=== PATIENT | male | born 1970 | race Caucasian/White ===

== ENCOUNTER 2019-04-07 20:45 | Inpatient (IN) | payer MEDICAID ==
[~2019-04-07] VITALS: Ht 170.2 cm; Wt 93.4 kg
[2019-04-07 20:51] VITALS: BP_SYST 145
--- NOTE | 2019-04-07 20:52 | NUR ---
Patient triaged and placed in waiting room. VSS and patient appears in no acute distress at this time. Accompanied by family member, awaiting available bed, and MD notified of need for MSE.
--- NOTE | 2019-04-07 23:17 | NUR ---
Patient to ER bed H1 to gown for evaluation. Side rails up.
--- NOTE | 2019-04-07 23:22 | NUR ---
Pt AAOx4, panamanian speaking only, presents to ED c/o 01/27 pain to foot radiating up L leg s/p hitting foot on wooden palate at work x 1 week ago. Redness and swelling noted. No other injuries/complaints per pt/noted. Will continue to monitor.
--- NOTE | 2019-04-07 23:52 | NUR ---
ER Dr. Childs at bedside examining patient.
[2019-04-07] MEDS ORDERED: NACL 0.9% 1,000 ML IV ONE (23:55)
[2019-04-08] MEDS ORDERED: VANCOMYCIN HCL 1,000 MG in NS 250 ML IV ONE ×2
[2019-04-08] MEDS ORDERED: cefTRIAXone 1 GM in D5W 50 ML IV ONE ×2
[2019-04-08] MEDS ORDERED: DIPH-TET-PERTUS Vaccine 0.5 ML VIAL (ADACEL) I.M. ONE
[2019-04-08] MEDS ORDERED: MORPHINE 2 MG/ML INJ. SYRINGE IM ONE
[2019-04-08] MEDS ORDERED: ONDANSETRON HCL 4 MG/2 ML VIAL IVP ONE
[2019-04-08] MEDS ORDERED: cefTRIAXone 1 GM VIAL ONE (00:20)
[2019-04-08] MEDS ORDERED: VANCOMYCIN HCL 1000 MG/VIAL IV ONE (00:21)
[2019-04-08 01:24] LABS: BASOPHILS # (AUTO) 0.1 K/uL (0.0-0.2); BASOPHILS % (AUTO) 0.4 % (0.0-2.0); EOSINOPHILS # (AUTO) 0.1 K/uL (0.0-0.4); EOSINOPHILS % (AUTO) 0.8 % (0.0-4.0); HEMATOCRIT 32.7 % (36-54); HEMOGLOBIN 11.1 g/dL (14.0-18.0); LYMPHOCYTES # (AUTO) 2.7 K/uL (1.0-5.5); LYMPHOCYTES % (AUTO) 17.5 % (20.5-51.5); MEAN CORPUSCULAR HEMOGLOBIN 29 pg (27-31); MEAN CORPUSCULAR HGB CONC 34 % (32-36); MEAN CORPUSCULAR VOLUME 85 fL (79.0-98.0); MONOCYTES # (AUTO) 1.4 K/uL (0.0-1.0); MONOCYTES % (AUTO) 8.8 % (1.7-9.3); NEUTROPHILS # (AUTO) 11.2 K/uL (1.8-7.7); NEUTROPHILS % (AUTO) 72.5 % (40.0-70.0); PLATELET COUNT (AUTO) 329 K/uL (130-430); RED BLOOD CELL COUNT(AUTO) 3.87 MIL/uL (4.2-6.2); RED CELL DISTRIBUTION WIDTH 13.9 % (9.0-15.0); WHITE BLOOD COUNT (AUTO) 15.4 K/uL (4.8-10.8)
[2019-04-08 01:39] LABS: PROTHROMBIN TIME 10.2 SECS (9.5-12.5)
[2019-04-08 01:40] LABS: ALBUMIN 3.9 g/dL (3.4-4.8); CALCIUM 8.9 mg/dL (8.4-11.0); CREATININE 1.6 mg/dL (0.55-1.30); TOTAL BILIRUBIN 0.9 mg/dL (0.0-1.0)
[2019-04-08] MEDS ORDERED: METF-510 PO (02:43)
[2019-04-08] MEDS ORDERED: ASPI-1155 PO (02:43)
[2019-04-08] MEDS ORDERED: NEU300 PO (02:43)
[2019-04-08] MEDS ORDERED: INSULIN REGULAR, HUMAN 100 UNITS/ML, 10 ML VIAL (humuLIN R) SUBCUT PRN (02:45)
--- NOTE | 2019-04-08 02:49 | NUR ---
Medication reconciliation completed with information verbally provided by pt. Pt states he does not remember two of the medications he takes at home, but he knows they are a "blood pressure medication and lipid medication." Any prior medication reconciliation on file was reviewed and corrected.
--- NOTE | 2019-04-08 03:34 | NUR ---
Per [facility], room number will be given when available. Pt laying comfortably in bed with no signs of distress.
--- NOTE | 2019-04-08 03:53 | NUR ---
Pt moved to bed 07. Warm blanket provided. Pt sleeping with no signs of distress.
--- NOTE | 2019-04-08 03:53 | NUR ---
Called [facility] for med surg bed, per [facility], no beds available at this time due to inappropriate staffing.
--- NOTE | 2019-04-08 04:26 | NUR ---
Patient will be admitted to care of [facility]. Admitted to Medsurg unit. Will go to room 122. Belongings list completed. Summary report printed. Report will be given at bedside.
--- NOTE | 2019-04-08 04:41 | NUR ---
ADMIT NOTE Received pt from ER to the floor with a diagnosis of cellulitis of left foot. Admission process initiated. patient oriented to pain management, safety and call light-teach back done.
[2019-04-08 04:52] VITALS: BP_SYST 117
--- NOTE | 2019-04-08 05:30 | NUR ---
initial notes: pt is awake, alert, oriented x 4. complain of pain and swelling to left 5th toe. not distress. stable vitals ig, assess wound and clean- covered with dry dressing. pt has right hand iv lock gauge 20- intact and patent. explained to pt plan of care, medication, safety and orient to room and call light. pt demonstrate understanding. call light in reach. needs attended. will follow-up.
[2019-04-08 05:49] VITALS: BP_SYST 117
--- NOTE | 2019-04-08 07:17 | NUR ---
closing: pt is awake,alert. no distress.no pain. stable. needs attended.c all light in reach. bedside report given to am rn.
--- NOTE | 2019-04-08 07:25 | NUR ---
Opening Note Received bedside report from endorsing RN for continuation of care. Received patient awake and resting in bed, patient AAOx4. Patient denies any SOB or pain. Patient denies any other needs at this time. Skin warm/pink/dry and respirations even and unlabored. Educated patient on use of call light and patient returned demonstration. Bed locked in lowest position and call light within reach.
[2019-04-08 08:00] VITALS: BP_SYST 112
--- NOTE | 2019-04-08 09:47 | NUR ---
Nutrition Update Eliazar Scale 13 noted. Pt admitted for cellulitis of L foot. Diet: [facility] BMI: 32.3 kg/m2 RD to follow per nutrition care standards.
--- NOTE | 2019-04-08 10:40 | NUR ---
Dr. Amin at bedside examining patient. New orders received.
[2019-04-08] MEDS ORDERED: HYDROcodone/ACETAMIN 5-325 MG TAB (NORCO/ VICODIN) PO PRN (10:45)
--- NOTE | 2019-04-08 11:00 | NUR ---
Wound Care Wound care performed per wound care guidelines. Patient tolerated well. No signs or symptoms of acute distress noted.
[2019-04-08] MEDS ORDERED: LISI-209 PO (11:09)
[2019-04-08] MEDS ORDERED: SIMV40TA2 PO (11:09)
[2019-04-08] MEDS ORDERED: INSU100V11 SQ (11:09)
--- NOTE | 2019-04-08 11:10 | NUR ---
Dr. Perez in to see patient. New orders received.
[2019-04-08] MEDS: INSULIN LISPRO SLIDING SCALE 100 UNITS/ML VIAL (humaLOG) SUBCUT PRN ×2 (11:21→22:50)
--- NOTE | 2019-04-08 11:31 | NUR ---
spoke to Dr Amin in regards to continuing patient's home medications, Dr Amin said she will look at the med rec and adjust/continue as needed.
--- NOTE | 2019-04-08 11:47 | NUR ---
CONSULTATION PAGED/CALLED Reason for Consultation: DIANETIC FOOT INFECTION Person Who was Notified: SPOKE TO EXCHANGE FROM OFFICE Consulting Physician: Technical Account Representative Specialty: INFECTIONS DISEASE Ordering Physician: DR. NITHYA BERGMAN MENTION DOCTOR HAS ALREADY SEEN THE PATIENT.
[2019-04-08 12:19] VITALS: BP_SYST 123
[2019-04-08] MEDS ORDERED: ACETAMINOPHEN 325 MG TABLET PO PRN (12:45)
--- NOTE | 2019-04-08 12:45 | NUR ---
Patient's family member at bedside. Made aware of patient status and plan of care. All questions answered clearly and education provided.
--- NOTE | 2019-04-08 13:06 | NUR ---
US tech in the room doing ordered US doppler of the lower extremity.
[2019-04-08] MEDS: ceFAZolin SODIUM 1 GM in D5W 50 ML IV SCH ×2 (14:02→22:44)
--- NOTE | 2019-04-08 15:15 | NUR ---
Patient awake in bed, facetiming family member. Patient denies any SOB or pain. No signs or symptoms of acute distress noted. Bed locked in lowest position and call light within reach.
[2019-04-08 16:45] VITALS: BP_SYST 126
[2019-04-08 17:12] LABS: BILIRUBIN,URINE NEGATIVE (NEGATIVE); BLOOD, URINE NEGATIVE (NEGATIVE); CLARITY/URINE CLEAR (CLEAR); COLOR,URINE YELLOW (YELLOW); GLUCOSE,URINE NEGATIVE (NEGATIVE); KETONES,URINE NEGATIVE (NEGATIVE); LEUKOCYTE ESTERASE ,URINE 1+ (NEGATIVE); NITRITE, URINE NEGATIVE (NEGATIVE); PH,URINE 5.5 (5.0-8.0); PROTEIN URINE NEGATIVE (NEGATIVE); UROBILINOGEN,URINE 0.2 (0.2-1.0)
--- NOTE | 2019-04-08 17:17 | NUR ---
Patient resting in bed, denies any SOB or pain at this time. No signs or symptoms of acute distress noted. Bed locked in lowest position and call light within reach.
[2019-04-08 18:22] LABS: BACTERIA,URINE FEW /HPF (None Seen); MUCUS,URINE 1+ /LPF (None Seen); RBC,URINE 0-3 /HPF (0-3)
--- NOTE | 2019-04-08 18:57 | NUR ---
Closing Note Patient awake and resting in bed, denies any SOB or pain. Educated to use call light when needed. Patient returned demonstration and verbalized understanding. No signs or symptoms of acute distress noted. Will endorse bedside report using SBAR approach for continuation of care to shift foreman RN.
--- NOTE | 2019-04-08 19:31 | NUR ---
OPENING NOTE Received patient resting in bed, awake, AOX4, no distress, non-labored breathing on room air. Patient was speaking on phone. IV is SL. Bed is locked in lowest position, call light w/in reach. Presently bed alarm is not on and patient refused, stating he is able to walk and has been walking. He demonstrated use of call light. Updated board and reviewed plan of care.
[2019-04-08 20:00] VITALS: BP_SYST 126
[2019-04-08] MEDS: SIMVASTATIN 40 MG TABLET PO SCH (22:44)
[2019-04-08] MEDS: GABAPENTIN 300 MG CAPSULE PO SCH (22:44)
--- NOTE | 2019-04-08 22:45 | NUR ---
Medications Due medications given; educated on side effects and verbalized understanding. Fingerstick blood glucose test done w/ result of 166; scheduled Lantus given and covered with 2 units of insulin per sliding scale; educated on insulin and side effects, he verbalized understanding. Presently denies pain. Call light w/in reach.
[2019-04-08] MEDS: INSULIN GLARGINE 100 UNITS/ML 10 ML VIAL SUBCUT SCH (22:49)
[2019-04-09 00:10] VITALS: BP_SYST 126
--- NOTE | 2019-04-09 00:24 | NUR ---
V/S Midnight V/S taken and stable. Presently denies pain, no sign of distress. Call light w/in reach. Will continue to monitor.
--- NOTE | 2019-04-09 02:38 | NUR ---
RN Rounds Patient is sleeping. No sign of distress, symmetrical rise and fall of chest. Call light w/in reach. Will continue to monitor.
--- NOTE | 2019-04-09 04:30 | NUR ---
Resting Patient resting in comfortable position, sleeping and snoring. Symmetrical rise and fall of chest. Call light w/in reach.
[2019-04-09] MEDS: ceFAZolin SODIUM 1 GM in D5W 50 ML IV SCH ×3 (06:30→21:39)
--- NOTE | 2019-04-09 06:46 | NUR ---
Nutrition Update Eliazar Scale 18 noted. Pt admitted for Cellulitis of L foot Diet: [facility] BMI: 32.3 kg/m2 RD to follow per nutrition care standards.
--- NOTE | 2019-04-09 07:30 | NUR ---
CLOSING NOTE Endorse report, patient stable.
[2019-04-09 07:47] LABS: BASOPHILS % (AUTO) 0.4 % (0.0-2.0); EOSINOPHILS # (AUTO) 0.8 K/uL (0.0-0.4); EOSINOPHILS % (AUTO) 9.9 % (0.0-4.0); HEMATOCRIT 34.6 % (36-54); HEMOGLOBIN 11.8 g/dL (14.0-18.0); LYMPHOCYTES # (AUTO) 2.2 K/uL (1.0-5.5); LYMPHOCYTES % (AUTO) 26.6 % (20.5-51.5); MEAN CORPUSCULAR HEMOGLOBIN 29 pg (27-31); MEAN CORPUSCULAR HGB CONC 34 % (32-36); MEAN CORPUSCULAR VOLUME 85 fL (79.0-98.0); MONOCYTES # (AUTO) 0.7 K/uL (0.0-1.0); MONOCYTES % (AUTO) 8.9 % (1.7-9.3); NEUTROPHILS # (AUTO) 4.5 K/uL (1.8-7.7); NEUTROPHILS % (AUTO) 54.2 % (40.0-70.0); PLATELET COUNT (AUTO) 343 K/uL (130-430); RED BLOOD CELL COUNT(AUTO) 4.09 MIL/uL (4.2-6.2); RED CELL DISTRIBUTION WIDTH 13.9 % (9.0-15.0)
[2019-04-09 07:56] LABS: ALBUMIN 3.4 g/dL (3.4-4.8); CALCIUM 9.1 mg/dL (8.4-11.0); CREATININE 0.93 mg/dL (0.55-1.30); POTASSIUM 4.6 mmol/L (3.5-5.1); THYROID STIMULATING HORMONE 2.14 uIu/mL (0.36-3.74); TOTAL BILIRUBIN 0.8 mg/dL (0.0-1.0)
[2019-04-09 08:00] VITALS: BP_SYST 121
[2019-04-09 08:00] LABS: TOTAL IRON BIND. CAPACITY 306 ug/dL (250-450)
--- NOTE | 2019-04-09 08:00 | NUR ---
AM NOTES- Pt in bed, awake. ambulate with steady gait. denies any pain at this time. Safety precaution observed. call light in reach. Enc. to call for help as needed.
[2019-04-09 08:06] LABS: WHITE BLOOD COUNT (AUTO) 8.4 K/uL (4.8-10.8)
[2019-04-09] MEDS: ASPIRIN 81 MG TAB.CHEW PO SCH (08:37)
[2019-04-09] MEDS: GABAPENTIN 300 MG CAPSULE PO SCH ×2 (08:37→21:14)
[2019-04-09] MEDS: FAMOTIDINE 20 MG TABLET PO SCH (08:37)
[2019-04-09] MEDS: LISINOPRIL 5 MG TABLET PO SCH (08:38)
--- NOTE | 2019-04-09 11:00 | NUR ---
Notes- Family at bedside, no distress noted.
[2019-04-09] MEDS: INSULIN LISPRO SLIDING SCALE 100 UNITS/ML VIAL (humaLOG) SUBCUT PRN ×3 (11:42→21:24)
--- NOTE | 2019-04-09 13:18 | NUR ---
Dietitian Recommendations *Recommend [facility] diet w/ Gregorio BID. Please see Nutritional Assessment for details. KOMAL, RAYNE
--- NOTE | 2019-04-09 14:02 | NUR ---
WOUND EVALUATION: Wound Consult received from Dr. Amin. Thank you, Dr. Amin, for the consult. Patient received in a Jaydon Bed with a mattress, awake, alert, and oriented. Patient is unable to turn independently. Eliazar Score is an 18. Past Medical History: Diabetes Mellitus, Hypertension. Recent Labs: WBC 8.4, RBC 4.09, hemoglobin 11.8, hematocrit 34.6, BUN 15, creatinine 0.93, GFR 92, glucose 138, POC glucose 181, iron 41, percent saturation 13, alkaline phosphatase 123, albumin 3.4. Microbiology: Blood culture results 2 in progress. Wound culture results in progress. MRSA screen results in progress. Urine culture results in progress. Intrinsic factors that delay wound healing: Diabetes mellitus, Anemia. Extrinsic factors that delay wound healing: Decreased mobility. Wound Assessment: 1. Left foot, Lateral Fifth Toe: Diabetic/Neuropathic ulcer, present on admission. Wound bed has 100% yellow eschar. No odor, scant yellow purulent drainage. Janna-wound intact. Foot has calor. Left fifth toe is erythematous. No edema present. Measures 1.5 cm x 3.5 cm. Small dark discolored area on lateral aspect of toe where exudate is draining has fluctuance. Recommend: Cleanse wound with normal saline. Apply sure prep to periwound. Apply Silvasorb gel to wound bed. Cover with foam dressing. Wrap with Yury wrap. Perform wound care daily, and as needed for dressing soiling or dislodgement. Also recommend: Encourage and assist patient as needed with repositioning every 2 hours with pillow support and off-load pressure areas with pillows for pressure re-distribution. Recommend surgical consult for left fifth toe.
--- NOTE | 2019-04-09 15:51 | NUR ---
notes- Resting in bed, Seen by wound care nurse. waiting for the cream from pharmacy then will re dress the wound.
[2019-04-09 16:45] VITALS: BP_SYST 112
--- NOTE | 2019-04-09 17:08 | NUR ---
CONSULTATION PAGED/CALLED Reason for Consultation: DEBRIDEMENT OF DIABETIC FOOT ULCER Person Who was Notified: SPOKE WITH NIKOLAY FROM EXCHANGE. Consulting Physician: Sleeve Ironer Specialty: SURGEON Ordering Physician:
[2019-04-09] MEDS: SILVER 44.4 ML GEL.ER.ML. TP SCH (17:31)
--- NOTE | 2019-04-09 18:26 | NUR ---
closing notes- In bed, eating. No change in assessment. All needs meet. alicia.
[2019-04-09 19:28] VITALS: BP_SYST 132
--- NOTE | 2019-04-09 19:30 | NUR ---
initial notes: pt is awake, alert, oriented x 4, watching tv. no pain, no distress. stable vital sign. dressing of left 5th toe is clean dry and intact. pt has right hand iv lock gauge 20- according to pt it is leaking. explained to pt plan of care, medication, safety and orient to room and call light. pt demonstrate understanding. call light in reach. needs attended. will follow-up.
--- NOTE | 2019-04-09 21:00 | NUR ---
pt is watching tv. took all his medication. start new iv site to left forearm gauge 20- good blood return.pt tolerate well. needs attended. will follow-up.
[2019-04-09] MEDS: SIMVASTATIN 40 MG TABLET PO SCH (21:13)
[2019-04-09] MEDS: INSULIN GLARGINE 100 UNITS/ML 10 ML VIAL SUBCUT SCH (21:23)
--- NOTE | 2019-04-09 22:21 | NUR ---
pt is awake, alert, watching tv. no pain, stable. needs attended. will follow-up.
[2019-04-09 23:54] VITALS: BP_SYST 125
--- NOTE | 2019-04-10 00:49 | NUR ---
sleeping, comfortable. no pain. no sob. stable. call light in reach.
--- NOTE | 2019-04-10 02:30 | NUR ---
sleeping, no pain. no sob. stable. iv lock-intact. safety on.
[2019-04-10 03:48] VITALS: BP_SYST 120
--- NOTE | 2019-04-10 04:39 | NUR ---
sleeping. no pain. no sob. stable. call light in reach.
[2019-04-10] MEDS: ceFAZolin SODIUM 1 GM in D5W 50 ML IV SCH ×3 (06:35→21:01)
[2019-04-10] MEDS: INSULIN LISPRO SLIDING SCALE 100 UNITS/ML VIAL (humaLOG) SUBCUT PRN ×4 (06:42→21:09)
--- NOTE | 2019-04-10 06:52 | NUR ---
closing: pt is awake, alert, watching tv. no pain. no distress. blood sugar is 171- cover per sliding scale. needs attended call light in reach. side rails up. will give bedside report to incoming am rn.
--- NOTE | 2019-04-10 07:39 | NUR ---
AM NOTES- IN bed, watching tv. denies any pain or discomfort at this time. no complains. safety precaution. update on plan of care. Safety precaution observed. Call light within reach. Enc to call for help as needed.
[2019-04-10 07:41] VITALS: BP_SYST 127
[2019-04-10] MEDS: GABAPENTIN 300 MG CAPSULE PO SCH ×2 (08:31→21:01)
[2019-04-10] MEDS: SILVER 44.4 ML GEL.ER.ML. TP SCH (08:31)
[2019-04-10] MEDS: ASPIRIN 81 MG TAB.CHEW PO SCH (08:31)
[2019-04-10] MEDS: FAMOTIDINE 20 MG TABLET PO SCH (08:31)
[2019-04-10] MEDS: LISINOPRIL 5 MG TABLET PO SCH (08:32)
--- NOTE | 2019-04-10 10:00 | NUR ---
MD ROUNDS SEEN BY DR. FRANCO AT BEDSIDE.
--- NOTE | 2019-04-10 11:02 | NUR ---
notes- pt done self care. change linen. resting at this time.
[2019-04-10 12:47] VITALS: BP_SYST 125
[2019-04-10 13:10] LABS: FOLATE (FOLIC ACID) 9.9 ng/mL (>3.0)
--- NOTE | 2019-04-10 14:00 | NUR ---
NOTES- SITTING IN A CHAIR, DENIES ANY PAIN. AMBULATE WITH STEADY GAIT.
--- NOTE | 2019-04-10 16:00 | NUR ---
MD ROUNDS SEEN BY DR. BARRIGA AT BEDSIDE.
--- NOTE | 2019-04-10 17:44 | NUR ---
Notes- Pt stated that he does not have bowel movement for 3 days now and requested dulcolax x1. will order.
[2019-04-10] MEDS ORDERED: BISACODYL 5 MG TABLET.DR (DULCOLAX) PO ONE (17:45)
--- NOTE | 2019-04-10 18:29 | NUR ---
closing notes- Sitting in the chair, eating dinner. no complaints.All needs meet through out shift. No change in assessment. will endorse.
--- NOTE | 2019-04-10 19:55 | NUR ---
Initial note: Report received from dayshift RN. Patient is awake, sitting in chair at bedside. Alert and oriented x4, no distress noted. IV site is patent and benign. Tolerating room air. Call light is with patient. Safety and fall precautions in place. Will continue with plan of care.
[2019-04-10 20:00] VITALS: BP_SYST 120
[2019-04-10] MEDS: SIMVASTATIN 40 MG TABLET PO SCH (21:01)
--- NOTE | 2019-04-10 21:03 | NUR ---
Blood sugar: Patient's blood sugar is 185. Humalog insulin 2 units administered per sliding scale. Scheduled Lantus 15 units administered as ordered. Call light with patient. Will monitor for signs of hypoglycemia.
[2019-04-10] MEDS: INSULIN GLARGINE 100 UNITS/ML 10 ML VIAL SUBCUT SCH (21:10)
[2019-04-11 00:22] VITALS: BP_SYST 119
--- NOTE | 2019-04-11 00:29 | NUR ---
Rounds: Patient is resting in bed, sleeping. No distress. Tolerating room air, breathing is even and unlabored. Call light is with patient. Will continue to monitor.
--- NOTE | 2019-04-11 03:42 | NUR ---
Rounds: Patient is sleeping comfortably in bed. No acute distress. Even and unlabored respirations on room air. Call light with patient. Will continue to monitor.
[2019-04-11] MEDS: ceFAZolin SODIUM 1 GM in D5W 50 ML IV SCH ×2 (05:17→13:55)
[2019-04-11] MEDS: INSULIN LISPRO SLIDING SCALE 100 UNITS/ML VIAL (humaLOG) SUBCUT PRN ×3 (06:04→17:43)
--- NOTE | 2019-04-11 06:31 | NUR ---
Closing note: Patient is awake, no distress noted. IV site to left AC is patent and benign. Blood sugar this AM was 236, administered 4 units of Humalog per MD-ordered sliding scale. All needs met. Safety and fall precautions observed. Will endorse care to dayshift RN.
[2019-04-11 08:00] VITALS: BP_SYST 113
--- NOTE | 2019-04-11 08:00 | NUR ---
[place] SPEAKING, BUT A/OX4. IV SITE SL, INTACT AND PATENT. INSTRUCTED PATIENT TO USE CALL LIGHT FOR NEEDS.
[2019-04-11] MEDS: FAMOTIDINE 20 MG TABLET PO SCH (08:23)
[2019-04-11] MEDS: GABAPENTIN 300 MG CAPSULE PO SCH (08:23)
[2019-04-11] MEDS: ASPIRIN 81 MG TAB.CHEW PO SCH (08:24)
[2019-04-11] MEDS: LISINOPRIL 5 MG TABLET PO SCH (08:24)
[2019-04-11] MEDS: SILVER 44.4 ML GEL.ER.ML. TP SCH (08:26)
--- NOTE | 2019-04-11 10:02 | NUR ---
WOUNDCARE IS DONE. WOUND IS CLEANSED WITH NS, PATTED DRY, COVERED WITH SILVASORB AND OPTIFOAM, WRAPPED WITH KERLIX. PATIENT TOLERATES WITHOUT DISTRESS.
--- NOTE | 2019-04-11 11:00 | NUR ---
PATIENT BS 231. WILL PROVIDE COVERAGE AT LUNCHTIME.
[2019-04-11 12:00] VITALS: BP_SYST 122
--- NOTE | 2019-04-11 12:51 | NUR ---
patient is resting after finishing his lunch. Tolerating without distress.
--- NOTE | 2019-04-11 14:30 | NUR ---
Dr. Amin calls and states that patient can be discharged. Prescription will be sent to pharmacy electronically per Dr. Amin. Patient is informed of the decision and will find someone to bring him home.
[2019-04-11 14:35] VITALS: BP_SYST 122
[2019-04-11 16:00] VITALS: BP_SYST 132
--- NOTE | 2019-04-11 16:40 | NUR ---
PATIENT BS 189. WILL PROVIDE COVERAGE PER SLIDING SCALE BEFORE MEALS.
[2019-04-11] MEDS ORDERED: INSULIN GLARGINE 100 UNITS/ML 10 ML VIAL SUBCUT SCH (21:00)
== END 2019-04-11 18:50 | disposition home or self-care (01) | DRG 383 ==
LOC: SED 20:45 → SMU 04-08 02:45
PROVIDERS: ADMIT Internal Medicine; ATTEND Internal Medicine
DX: L03.032 Cellulitis of left toe (principal); N17.0 Acute kidney failure with tubular necrosis; R65.11 Systemic inflammatory response syndrome (SIRS) of non-infectious origin with acute organ dysfunction; N39.0 Urinary tract infection, site not specified; E11.22 Type 2 diabetes mellitus with diabetic chronic kidney disease; E11.51 Type 2 diabetes mellitus with diabetic peripheral angiopathy without gangrene; E11.621 Type 2 diabetes mellitus with foot ulcer; L97.509 Non-pressure chronic ulcer of other part of unspecified foot with unspecified severity; I12.9 Hypertensive chronic kidney disease with stage 1 through stage 4 chronic kidney disease, or unspecified chronic kidney disease; D63.1 Anemia in chronic kidney disease; Z79.4 Long term (current) use of insulin; N18.9 Chronic kidney disease, unspecified; E66.9 Obesity, unspecified; Z79.82 Long term (current) use of aspirin; Z79.84 Long term (current) use of oral hypoglycemic drugs; Z68.32 Body mass index [BMI] 32.0-32.9, adult
CPT/HCPCS: 36415; 73590-TC; 80053; 81000-TC; 82607; 82746; 82962; 83540-TC; 83550-TC; 83605; 84443-TC; 85025; 85610-TC; 85730-TC; 87040-TC; 87070-TC; 87081; 87086; 87186-TC; 90715; 93923; 96365; 96366; 96372; 96375; 99285; J0690; J0696; J1815; J2270; J2405; J3370; J7030; J7060